=== PATIENT | female | born 1975 | race Caucasian/White ===

== ENCOUNTER → 2019-03-17 | Outpatient (CLI) | payer OTHER ==
[2019-03-17 14:45] LABS: HCT 34.2 % (34.0-46.0); HGB 10.2 gm/dL (11.4-16.0); Hypochromasia Moderate; MCH 25.7 pg (25.0-35.0); MCHC 29.8 g/dL (31.0-37.0); MCV 86.2 fL (80.0-100.0); Mean Platelet Volume 6.4; Platelet Count 429 k/uL (150-450); RBC 3.96 m/uL (3.80-5.40); RDW 15.7 % (11.5-15.5); WBC 11.6 k/uL (3.8-10.6)
== END | disposition home or self-care (01) ==
LOC: LABWHC1 13:58
PROVIDERS: ATTEND Internal Medicine Gastroenterology
DX: K51.90 Ulcerative colitis, unspecified, without complications (principal)
CPT/HCPCS: 36415; 85027

== ENCOUNTER → 2020-03-07 | Outpatient (CLI) | payer OTHER ==
--- NOTE | 2020-03-07 11:15 | FL ---
ESOPHOGRAM. HISTORY: Dysphagia Single contrast esophagus esophagram was performed. Patient ingested thin liquid barium without diffi culty or delay. Esophageal peristalsis and motility appear to be within normal limits. There is no evidence for filling defect, mass or diverticulum. There is a large fixed hiatal hernia noted without obstruction. Subsequently single contrast cervical esophagram was performed which fails demonstrate evidence for a spiration penetration or mass. IMPRESSION: There is a large fixed hiatal hernia noted without obstruction.
== END | disposition home or self-care (01) ==
LOC: RADUSWWP 09:48
PROVIDERS: ATTEND Surgery Plastic and Reconstructive Surgery
DX: K44.9 Diaphragmatic hernia without obstruction or gangrene (principal)
CPT/HCPCS: 74220

== ENCOUNTER → 2020-03-31 | Outpatient (CLI) | payer OTHER ==
[2020-03-31 13:36] LABS: Anisocytosis Slight; HCT 40.2 % (34.0-46.0); HGB 12.5 gm/dL (11.4-16.0); Hypochromasia Slight; MCH 27.8 pg (25.0-35.0); MCV 89.6 fL (80.0-100.0); Mean Platelet Volume 7.1; Platelet Count 311 k/uL (150-450); RBC 4.49 m/uL (3.80-5.40); RDW 18.1 % (11.5-15.5); WBC 8.2 k/uL (3.8-10.6)
[2020-03-31 13:47] LABS: INR 0.9 (<1.2); Partial Thromboplastin Time 26.7 sec (22.0-30.0); Prothrombin Time 9.4 sec (9.0-12.0)
[2020-03-31 14:15] LABS: ALT 21 U/L (4-34); AST 19 U/L (14-36); African American GFR (CKD) >90 (>60 ml/min/1.73 sqM); Alkaline Phosphatase 57 U/L (38-126); Anion Gap 7 mmol/L; Blood Urea Nitrogen 14 mg/dL (7-17); Calcium 9.4 mg/dL (8.4-10.2); Carbon Dioxide 27 mmol/L (22-30); Chloride 104 mmol/L (98-107); Cholesterol 184 mg/dL (<200); Glucose 123 mg/dL (74-99); HDL Cholesterol 40 mg/dL (40-60); LDL Cholesterol,Calculated 90 mg/dL (0-99); Magnesium 1.7 mg/dL (1.6-2.3); Non-African American GFR(CKD) >90 (>60 ml/min/1.73 sqM); Phosphorus 3.3 mg/dL (2.5-4.5); Potassium 4.3 mmol/L (3.5-5.1); Sodium 138 mmol/L (137-145); Total Bilirubin 0.4 mg/dL (0.2-1.3); Total Protein 7.1 g/dL (6.3-8.2); Triglycerides 272 mg/dL (<150)
[2020-03-31 19:02] LABS: Ferritin 140.2 ng/mL (10.0-291.0)
[2020-03-31 19:51] LABS: Folate, Serum >24.0 ng/mL; Iron 61 ug/dL (50-170); Total Iron Binding Capacity 302 ug/dL (228-460)
[2020-04-01 14:07] LABS: Zinc, Serum 70 ug/dL (60-130)
[2020-04-03 02:30] LABS: Selenium 128 mcg/L (63-160)
[2020-04-04 06:37] LABS: Vitamin A 38 ug/dL (38-106)
[2020-04-05 06:52] LABS: Vit B1(Thiamine) 57 ug/L (38-122)
== END | disposition home or self-care (01) ==
LOC: LABPAT 12:08
PROVIDERS: ATTEND Surgery Plastic and Reconstructive Surgery
DX: E21.1 Secondary hyperparathyroidism, not elsewhere classified (principal); E89.1 Postprocedural hypoinsulinemia; D50.9 Iron deficiency anemia, unspecified; K90.89 Other intestinal malabsorption; E55.9 Vitamin D deficiency, unspecified; K74.1 Hepatic sclerosis; N19 Unspecified kidney failure; K50.90 Crohn's disease, unspecified, without complications
CPT/HCPCS: 80053; 80061; 82306; 82525; 82607; 82728; 82746; 83036; 83540; 83550; 83735; 83970; 84100; 84134; 84255; 84425; 84443; 84590; 84630; 85027; 85610; 85730; 93005

== ENCOUNTER → 2021-05-03 | Outpatient (CLI) | payer OTHER ==
[2021-05-03 09:32] LABS: Basophils # (A) 0.1 k/uL (0-0.2); Basophils % (A) 1 %; Eosinophils # (A) 0.6 k/uL (0-0.7); Eosinophils % (A) 6 %; HCT 36.3 % (34.0-46.0); Lymphocytes # (A) 1.5 k/uL (1.0-4.8); Lymphocytes % (A) 16 %; MCH 29.1 pg (25.0-35.0); MCV 88.2 fL (80.0-100.0); Mean Platelet Volume 7.1; Monocytes # (A) 0.9 k/uL (0-1.0); Monocytes % (A) 9 %; Neutrophils # (A) 6.4 k/uL (1.3-7.7); Neutrophils % (A) 66 %; Platelet Count 343 k/uL (150-450); RBC 4.12 m/uL (3.80-5.40); RDW 13.9 % (11.5-15.5); WBC 9.7 k/uL (3.8-10.6)
== END | disposition home or self-care (01) ==
LOC: LABPAT 08:36
PROVIDERS: ATTEND Obstetrics & Gynecology
DX: Z01.812 Encounter for preprocedural laboratory examination (principal)
CPT/HCPCS: 36415; 85025

== ENCOUNTER 2021-05-11 06:17 | Day surgery (SDC) | payer OTHER ==
[2021-05-08 14:39] VITALS: BMI 48.0
--- NOTE | 2021-05-10 17:18 | P.HPOB ---
History of Present Illness H&P Date: 05/10/21 Chief Complaint: menorrhagia Patient is a 45-year-old female with heavy vaginal bleeding. She relates that she is had heavy but vaginal bleeding for number of years and her symptoms have included anemia and fatigue. She's never had treatment for the symptoms and is hoping for symptomatically relief as she is unable to function well due to how heavy her bleeding is. She is scheduled for a D&C with hysteroscopy. Risks/benefits/tarsus procedure were reviewed with the patient in detail and all questions were answered for her prior to proceeding to the operating room. Past Medical History Past Medical History: Blood Disorder, Hypertension Additional Past Medical History / Comment(s): anemia, colitis History of Any Multi-Drug Resistant Organisms: None Reported Past Surgical History: Section, Hernia Repair, Tubal Ligation Additional Past Surgical History / Comment(s): hiatal hernia repair Past Anesthesia/Blood Transfusion Reactions: Postoperative Nausea & Vomiting (PONV) Smoking Status: Never smoker - Past Family History Father Family Medical History: Hypertension Mother Family Medical History: No Reported History Medications and Allergies Home Medications Medication Instructions Recorded Confirmed Type Acebutolol HCl [Sectral] 600 mg PO DAILY 02/28/16 05/08/21 History Iron 64 mg PO BID 04/06/20 05/08/21 History PARoxetine [Paxil] 20 mg PO DAILY 10/28/20 05/08/21 History Budesonide [Entocort EC] 9 mg PO DAILY 05/08/21 05/08/21 History Allergies Allergy/AdvReac Type Severity Reaction Status Date / Time No Known Allergies Allergy Verified 05/08/21 14:25 Exam Osteopathic Statement: *. No significant issues noted on an osteopathic structural exam other than those noted in the History and Physical/Consult. - OBG Physical Exam Breast: both: normal (no masses) Abdomen: bowel sounds normal, no diffuse tenderness, no bruit present, no guarding noted, no hepatomegaly, no splenomegaly, no mass Vulva: both: normal Vagina: normal moisture, no discharge Cervix: no lesion, no discharge Uterus: normal size, normal contour Adnexa: both: normal Anus/Rectum: normal perianal skin, no rectal mass, no hemorrhoids, heme negative
[~2021-05-11 06:17] MED LIST: DEXAMETHASONE SOD PHOSPHATE 4 MG/ML 1 ML VIAL IV ONE; LACTATED RINGERS 1,000 ML IV SCH; ONDANSETRON 4 MG/2 ML VIAL IVP ONE; Pre Op ABX Message 1 EACH MISC MISCELLANE ONE
[2021-05-11] MEDS ORDERED: HYDROmorphone 0.5 MG/0.5 ML SYRINGE IVP PRN (07:00)
[2021-05-11 07:21] LABS: Glucose,Whole Blood 98 mg/dL (75-99)
[2021-05-11] MEDS ORDERED: SCOPOLAMINE 1.5MG/72HR PATCH TRANSDERM ONE (07:21)
[2021-05-11] MEDS ORDERED: MIDAZOLAM 2 MG/2 ML VIAL ONE (07:43)
[2021-05-11] MEDS ORDERED: PROPOFOL 10 MG/ML 20 ML VIAL IV ONE (07:43)
[2021-05-11] MEDS ORDERED: fentaNYL (PF) 50 MCG/ML 2 ML AMP ONE (07:43)
[2021-05-11] MEDS ORDERED: SUCCINYLCHOLINE CHLORIDE VIAL 200 MG/10 ML VIAL IV ONE (07:43)
[2021-05-11] MEDS ORDERED: LIDOCAINE 1% INJ 10MG/ML (20 ML MDV) ONE (07:43)
[2021-05-11 08:20] VITALS: TEMP 96.8
[2021-05-11] MEDS ORDERED: KETOROLAC 15 MG/ML 1 ML VIAL ONE (08:28)
[2021-05-11 09:00] VITALS: RESP 18
--- NOTE | 2021-05-11 09:07 | P.OP ---
Date of Procedure: 05/11/21 Preoperative Diagnosis: Dysfunctional uterine bleeding Postoperative Diagnosis: Same Procedure(s) Performed: D&C with hysteroscopy Anesthesia: TC Surgeon: Roger Moscoso Estimated Blood Loss (ml): 3 Pathology: other (Uterine curettings) Condition: stable Disposition: same day Operative Findings: Pathology pending Description of Procedure: Patient states the operating suite where a general anesthetic was found be adequate. She was prepped and draped in normal sterile fashion and placed in dorsal lithotomy position. Initially a Allis clamp was used grasp the cervix following placement of a weighted speculum. Cervix was then dilated and camera was inserted. No gross pathology was noted therefore camera was removed and sharp curettings were obtained. This tissue was collected, placed on Telfa, and sent to pathology for evaluation. All incidents were then removed. Sponge, lap, needle counts were all correct 2. Patient was then taken to the recovery room in stable and satisfactory condition. Plan - Discharge Summary Discharge Rx Participant: Yes New Discharge Prescriptions: New Ibuprofen [Motrin] 600 mg PO Q6HR PRN #30 tab PRN Reason: Pain No Action Acebutolol HCl [Sectral] 600 mg PO DAILY Iron 64 mg PO BID PARoxetine [Paxil] 20 mg PO DAILY Budesonide [Entocort EC] 9 mg PO DAILY Discharge Medication List Acebutolol HCl [Sectral] 600 mg PO DAILY 02/28/16 [History] Iron 64 mg PO BID 04/06/20 [History] PARoxetine [Paxil] 20 mg PO DAILY 10/28/20 [History] Budesonide [Entocort EC] 9 mg PO DAILY 05/08/21 [History] Ibuprofen [Motrin] 600 mg PO Q6HR PRN #30 tab 05/11/21 [Rx] Follow up Appointment(s)/Referral(s): Roger Moscoso DO [Doctor of Osteopathic Medicine] - 10 Days Patient Instructions/Handouts: *Sur[facility] - Dilation & Curettage Home Instructions, *[facility] - (Anesthesia) Discharge Instructions Outpatient Surgery, *Surgery [facility] - Scopalamine Patch Instructions Activity/Diet/Wound Care/Special Instructions: Heavy lifting, limit stairs and driving, and pelvic rest. If any high temperatures, heavy bleeding, or severe pain call my office
[2021-05-11 09:17] VITALS: BP 123/84; PULSE 73
== END 2021-05-11 09:50 | disposition home or self-care (01) ==
LOC: OR 06:17
PROVIDERS: ATTEND Obstetrics & Gynecology
DX: N92.0 Excessive and frequent menstruation with regular cycle (principal); N93.8 Other specified abnormal uterine and vaginal bleeding; N85.00 Endometrial hyperplasia, unspecified; F41.9 Anxiety disorder, unspecified; Z79.899 Other long term (current) drug therapy; I10 Essential (primary) hypertension; Z98.890 Other specified postprocedural states; Z98.51 Tubal ligation status
CPT/HCPCS: 58558; 81025; 88305; J2250; J0330; J1100; J2405; J2001; J3010; J1885; J2704

== ENCOUNTER 2022-07-24 13:23 | Emergency (ER) | payer OTHER ==
[2022-07-24 14:20] LABS: Basophils # (A) 0.1 k/uL (0-0.2); Basophils % (A) 2 %; Eosinophils # (A) 0.2 k/uL (0-0.7); Eosinophils % (A) 3 %; HCT 27.1 % (34.0-46.0); HGB 8.1 gm/dL (11.4-16.0); Hypochromasia Marked; Lymphocytes # (A) 1.7 k/uL (1.0-4.8); Lymphocytes % (A) 25 %; MCH 22.8 pg (25.0-35.0); Mean Platelet Volume 7.3; Microcytosis Slight; Monocytes # (A) 0.4 k/uL (0-1.0); Monocytes % (A) 7 %; Neutrophils % (A) 60 %; Platelet Count 508 k/uL (150-450); Poikilocytosis Slight; RBC 3.57 m/uL (3.80-5.40); RDW 14.9 % (11.5-15.5); WBC 6.6 k/uL (3.8-10.6)
[2022-07-24 14:32] LABS: ALT 27 U/L (4-34); AST 23 U/L (14-36); African American GFR (CKD) >90 (>60 ml/min/1.73 sqM); Albumin 4.2 g/dL (3.5-5.0); Alkaline Phosphatase 75 U/L (38-126); Anion Gap 7 mmol/L; Blood Urea Nitrogen 15 mg/dL (7-17); Calcium 8.9 mg/dL (8.4-10.2); Carbon Dioxide 22 mmol/L (22-30); Chloride 110 mmol/L (98-107); Glucose 127 mg/dL (74-99); Non-African American GFR(CKD) >90 (>60 ml/min/1.73 sqM); Potassium 4.5 mmol/L (3.5-5.1); Sodium 139 mmol/L (137-145); Total Bilirubin 0.2 mg/dL (0.2-1.3); Total Protein 7.2 g/dL (6.3-8.2)
[2022-07-24 14:40] LABS: INR 0.9 (<1.2); Prothrombin Time 9.6 sec (9.0-12.0)
--- NOTE | 2022-07-24 17:43 | ED ---
Dizziness HPI - General Chief Complaint: Dizziness Stated Complaint: dizziness Time Seen by Provider: 07/24/22 17:32 Source: patient Mode of arrival: ambulatory Limitations: no limitations - History of Present Illness Initial Comments: 's patient is a 47-year-old woman with history of anemia who presents to have evaluation because she suspects her condition has recurred. The patient states that lately when she exerts herself especially going upstairs, she finds that she becomes short of breath. She also has experienced numbness to the bilateral hands and sometimes she feels like she'll pass out. The symptoms have been intermittent but have been occurring more frequently. 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 She states that after that she exerted herself and she was feeling pretty bad so she felt she should be seen here. She states that labs were drawn at the clinic but she does not have a result. Patient has not noted any bloody or dark tarry stools. Last period was heavy but states she had previous D&C and was told that they didn't believe this was responsible for her anemia. MD Complaint: dizziness, lightheadedness, difficulty walking -: hour(s) Timing: sudden onset Description: lightheadedness History of Same: Yes History of Trauma: No Severity: moderate Improves With: rest Worsens With: exertion - Related Data Home Medications Medication Instructions Recorded Confirmed Acebutolol HCl [Sectral] 600 mg PO DAILY 02/28/16 04/16/22 Iron 64 mg PO BID 04/06/20 04/13/22 PARoxetine [Paxil] 20 mg PO DAILY 10/28/20 04/16/22 Mesalamine [Lialda] 5 gm PO DAILY 07/28/21 04/16/22 Pantoprazole [Protonix] 40 mg PO DAILY 11/20/21 04/16/22 Previous Rx's Medication Instructions Recorded oxyCODONE HCL [OxyIR] 5 mg PO Q6H PRN 3 Days #6 tab 04/16/22 Allergies Allergy/AdvReac Type Severity Reaction Status Date / Time No Known Allergies Allergy Verified 04/16/22 06:59 Review of Systems ROS Statement: Those systems with pertinent positive or pertinent negative responses have been documented in the HPI. ROS Other: All systems not noted in ROS Statement are negative. Constitutional: Reports: weakness. Denies: fever, chills Eyes: Denies: vision change Respiratory: Denies: cough, dyspnea Cardiovascular: Denies: chest pain, palpitations, orthopnea, edema, syncope Gastrointestinal: Denies: abdominal pain, vomiting, diarrhea Genitourinary: Denies: dysuria, hematuria, abnormal menses Musculoskeletal: Denies: back pain Skin: Denies: rash Neurological: Reports: paresthesias. Denies: headache, weakness, numbness Hematological/Lymphatic: Denies: easy bleeding Past Medical History Past Medical History: Blood Disorder, GERD/Reflux, Hypertension Additional Past Medical History / Comment(s): iron deficient anemia, ulcerative colitis, gallstones, recent RUQ pain History of Any Multi-Drug Resistant Organisms: None Reported Past Surgical History: Section, Hernia Repair, Tubal Ligation Additional Past Surgical History / Comment(s): hiatal hernia repair, C/S x3, D & C Past Anesthesia/Blood Transfusion Reactions: Postoperative Nausea & Vomiting (PONV) Additional Past Anesthesia/Blood Transfusion Reaction / Comment(s): no problems w/blood transfusion Past Psychological History: Anxiety Smoking Status: Never smoker - Past Family History Father Family Medical History: Hypertension Mother Family Medical History: No Reported History General Exam Limitations: no limitations General appearance: alert, in no apparent distress Course Vital Signs 07/24/22 13:52 Temperature 98 F Pulse Rate 80 Respiratory 16 Rate Blood Pressure 148/81 O2 Sat by Pulse 100 Oximetry EKG Findings - EKG Results: EKG: interpreted by ERMD, sinus rhythm (Rate 74 bpm), normal axis, normal ST/T - Blocks, Welcome, Hypertrophy, ST Abn: QRS axis and voltage: low voltage (<0.5 MV total QRS and <1.0 MV in each precordial lead) Medical Decision Making - Medical Decision Making Patient's 47-year-old woman here with symptoms consistent with symptomatic anemia. Labs do reflect decreased hemoglobin by 3.5 g from March to today's date. Case is discussed with Dr. Alberto from hematology who does recommend t ransfusion based on patient's symptomatic anemia. Discussed with patient who is in agreement with this plan after informed consent.. - Lab Data Result diagrams: 07/24/22 14:13 07/24/22 14:13 Lab Results 07/24/22 07/24/22 07/24/22 Range/Units 14:13 14:13 14:13 WBC 6.6 (3.8-10.6) k/uL RBC 3.57 L (3.80-5.40) m/uL Hgb 8.1 L (11.4-16.0) gm/dL Hct 27.1 L (34.0-46.0) % MCV 76.0 L (80.0-100.0) fL MCH 22.8 L (25.0-35.0) pg MCHC 30.0 L (31.0-37.0) g/dL RDW 14.9 (11.5-15.5) % Plt Count 508 H (150-450) k/uL MPV 7.3 Neutrophils % 60 % Lymphocytes % 25 % Monocytes % 7 % Eosinophils % 3 % Basophils % 2 % Neutrophils # 4.0 (1.3-7.7) k/uL Lymphocytes # 1.7 (1.0-4.8) k/uL Monocytes # 0.4 (0-1.0) k/uL Eosinophils # 0.2 (0-0.7) k/uL Basophils # 0.1 (0-0.2) k/uL Hypochromasia Marked Poikilocytosis Slight Microcytosis Slight PT 9.6 (9.0-12.0) sec INR 0.9 (<1.2) Sodium 139 (137-145) mmol/L Potassium 4.5 (3.5-5.1) mmol/L Chloride 110 H (98-107) mmol/L Carbon Dioxide 22 (22-30) mmol/L Anion Gap 7 mmol/L BUN 15 (7-17) mg/dL Creatinine 0.63 (0.52-1.04) mg/dL Est GFR (CKD-EPI)AfAm >90 (>60 ml/min/1.73 sqM) Est GFR (CKD-EPI)NonAf >90 (>60 ml/min/1.73 sqM) Glucose 127 H (74-99) mg/dL Calcium 8.9 (8.4-10.2) mg/dL Total Bilirubin 0.2 (0.2-1.3) mg/dL AST 23 (14-36) U/L ALT 27 (4-34) U/L Alkaline Phosphatase 75 (38-126) U/L Troponin I (0.000-0.034) ng/mL Total Protein 7.2 (6.3-8.2) g/dL Albumin 4.2 (3.5-5.0) g/dL 07/24/22 Range/Units 14:13 WBC (3.8-10.6) k/uL RBC (3.80-5.40) m/uL Hgb (11.4-16.0) gm/dL Hct (34.0-46.0) % MCV (80.0-100.0) fL MCH (25.0-35.0) pg MCHC (31.0-37.0) g/dL RDW (11.5-15.5) % Plt Count (150-450) k/uL MPV Neutrophils % % Lymphocytes % % Monocytes % % Eosinophils % % Basophils % % Neutrophils # (1.3-7.7) k/uL Lymphocytes # (1.0-4.8) k/uL Monocytes # (0-1.0) k/uL Eosinophils # (0-0.7) k/uL Basophils # (0-0.2) k/uL Hypochromasia Poikilocytosis Microcytosis PT (9.0-12.0) sec INR (<1.2) Sodium (137-145) mmol/L Potassium (3.5-5.1) mmol/L Chloride (98-107) mmol/L Carbon Dioxide (22-30) mmol/L Anion Gap mmol/L BUN (7-17) mg/dL Creatinine (0.52-1.04) mg/dL Est GFR (CKD-EPI)AfAm (>60 ml/min/1.73 sqM) Est GFR (CKD-EPI)NonAf (>60 ml/min/1.73 sqM) Glucose (74-99) mg/dL Calcium (8.4-10.2) mg/dL Total Bilirubin (0.2-1.3) mg/dL AST (14-36) U/L ALT (4-34) U/L Alkaline Phosphatase (38-126) U/L Troponin I <0.012 (0.000-0.034) ng/mL Total Protein (6.3-8.2) g/dL Albumin (3.5-5.0) g/dL Disposition Clinical Impression: Anemia Disposition: HOME SELF-CARE Condition: Fair Instructions (If sedation given, give patient instructions): Anemia (ED) Is patient prescribed a controlled substance at d/c from ED?: No Referrals: Geri Lindsey DO [Primary Care Provider] - 1-2 days
[2022-07-24 20:02] VITALS: RESP 18; TEMP 98.1
[2022-07-24 23:17] VITALS: BP 132/80; PULSE 79
== END 2022-07-24 23:21 | disposition home or self-care (01) ==
LOC: EC 13:23
DX: D64.9 Anemia, unspecified (principal); K21.9 Gastro-esophageal reflux disease without esophagitis; F41.9 Anxiety disorder, unspecified; Z79.899 Other long term (current) drug therapy
CPT/HCPCS: 36415; 93005; 86900; 86901; 80053; 84484; 85025; 85610; 86850; 86920; 99284; 36430; P9016

== ENCOUNTER → 2022-11-07 | Outpatient (CLI) | payer OTHER ==
[2022-11-07 15:27] LABS: Basophils # (A) 0.09 X 10*3/uL (0.00-0.10); Basophils % (A) 0.9 %; Eosinophils # (A) 0.32 X 10*3/uL (0.04-0.35); Eosinophils % (A) 3.2 %; HCT 35.3 % (37.2-46.3); HGB 10.7 g/dL (12.0-15.0); Immature Grans, Automated 0.5 %; Lymphocytes # (A) 1.87 X 10*3/uL (0.90-5.00); Lymphocytes % (A) 18.7 %; MCH 27.6 pg (27.0-32.0); MCHC 30.3 g/dL (32.0-37.0); MCV 91.2 fL (80.0-97.0); Monocytes # (A) 0.91 X 10*3/uL (0.20-1.00); Monocytes % (A) 9.1 %; NRBC Per 100 WBC 0 /100 WBCS (0.0-0.0); Neutrophils # (A) 6.74 X 10*3/uL (1.80-7.70); Neutrophils % (A) 67.6 %; Platelet Count 433 X 10*3/uL (140-440); RBC 3.87 X 10*6/uL (4.10-5.20); RDW 18.6 % (11.5-14.5); WBC 9.98 X 10*3/uL (4.50-10.00)
== END | disposition home or self-care (01) ==
LOC: LABPAT 08:16
PROVIDERS: ATTEND Obstetrics & Gynecology Obstetrics
DX: Z01.818 Encounter for other preprocedural examination (principal); I10 Essential (primary) hypertension; N92.0 Excessive and frequent menstruation with regular cycle; D64.9 Anemia, unspecified; R00.1 Bradycardia, unspecified
CPT/HCPCS: 85025; 93005

== ENCOUNTER → 2022-11-07 | Outpatient (CLI) | payer OTHER ==
--- NOTE | 2022-11-08 07:54 | MM ---
Reason for Exam: Screening (asymptomatic). Last mammogram was performed 11 year(s) and 7 month(s) ago. Patient History: Menarche at age 16. First Full-Term at age 23. Maternal aunt had breast cancer at or over age 50. Maternal aunt had breast cancer under age 50. Maternal grandmother had breast cancer at or over age 50. Last menstrual period: 11/06/2022 Risk Values: Lisandra 5 year model risk: 0.7%. NCI Lifetime model risk: 7.9%. Prior Study Comparison: 04/09/2011 Bilateral Screening Mammogram, [facility]. Tissue Density: There are scattered fibroglandular densities. Findings: Analyzed By CAD. There is no suspicious group of microcalcifications or new suspicious mass in either breast. Overall Assessment: Negative, BI-RAD 1 Management: Screening Mammogram of both breasts in 1 year. A clinical breast exam by your physician is recommended on an annual basis and results should be correlated with mammographic findings. [facility] will attempt to contact patient to return for supplemental views and ultrasound if indicated. Electronically signed and approved by: Julio Rosen DO
== END | disposition home or self-care (01) ==
LOC: RADMAMWWP 08:18
PROVIDERS: ATTEND Obstetrics & Gynecology Obstetrics
DX: Z12.31 Encounter for screening mammogram for malignant neoplasm of breast (principal); Z80.3 Family history of malignant neoplasm of breast
CPT/HCPCS: 77063; 77067

== ENCOUNTER 2022-11-12 09:01 | Day surgery (SDC) | payer OTHER ==
[2022-11-09 08:37] VITALS: BMI 50.6
[~2022-11-12 09:01] MED LIST changes: -DEXAMETHASONE SOD PHOSPHATE 4 MG/ML 1 ML VIAL IV ONE; -LACTATED RINGERS 1,000 ML IV SCH; -ONDANSETRON 4 MG/2 ML VIAL IVP ONE
[2022-11-12] MEDS ORDERED: METOCLOPRAMIDE 5 MG/ML 2 ML VIAL IVP PRN (09:10)
[2022-11-12] MEDS ORDERED: LIDOCAINE 1% (10MG/ML) FOR IV START INTRADERMA PRN (09:10)
[2022-11-12] MEDS ORDERED: DEXAMETHASONE SOD PHOSPHATE 4 MG/ML 1 ML VIAL IV ONE (09:10)
[2022-11-12] MEDS ORDERED: HYDROmorphone 0.5 MG/0.5 ML SYRINGE IVP PRN (09:10)
[2022-11-12] MEDS ORDERED: ONDANSETRON 4 MG/2 ML VIAL IVP ONE (09:10)
[2022-11-12] MEDS: LACTATED RINGERS 1,000 ML IV SCH ×2 (09:35→10:50)
[2022-11-12] MEDS ORDERED: SCOPOLAMINE 1 MG/72 HR PATCH TRANSDERM ONE (09:39)
[2022-11-12] MEDS ORDERED: PROPOFOL 10 MG/ML 20 ML VIAL IV ONE (10:45)
[2022-11-12] MEDS ORDERED: LIDOCAINE 2% INJ 20 MG/ML (2 ML VIAL) ONE (10:45)
[2022-11-12] MEDS ORDERED: SUCCINYLCHOLINE CHLORIDE 200 MG/10 ML VIAL IV ONE (10:45)
[2022-11-12] MEDS ORDERED: KETOROLAC 15 MG/ML 1 ML VIAL ONE (10:45)
[2022-11-12] MEDS ORDERED: fentaNYL (PF) 50 MCG/ML 2 ML AMP ONE (10:45)
--- NOTE | 2022-11-12 11:19 | P.OP ---
Date of Procedure: 11/12/22 Preoperative Diagnosis: Menorrhagia Postoperative Diagnosis: Same Procedure(s) Performed: Hysteroscopy, dilation and curettage, endometrial ablation Anesthesia: GETA Surgeon: Ann Marie Swartz Estimated Blood Loss (ml): 5 IV fluids (ml): 200 Urine output (ml): 100 Pathology: other (Endometrial curettings) Condition: stable Disposition: PACU Indications for Procedure: Heavy menstrual bleeding Operative Findings: Enlarged uterus at 10 cm normal-appearing cavity Description of Procedure: Patient was taken back to the operating suite where general anesthesia was obtained without difficulty by the anesthesia department. Patient was prepped and draped in the normal sterile fashion in the dorsal lithotomy position. A weighted speculum was placed in the posterior vaginal vault the anterior lip of the cervix is visualized and grasped with a single-tooth tenaculum. The vaginal mucosa was quite friable with the cervix having a strawberry appearance. The endocervical canal was then serially dilated. Hysteroscope was placed through the cervix and toward the endometrial cavity. An intact cavity was appreciated with proliferative endometrium. The hysteroscope was removed and a sharp curettage was performed. The specimen was then sent to pathology for analysis. The NovaSure device was opened and set to the appropriate dimensions for the patient's cavity with a length of 6, width of 3.7, power of 122. After the cavity assessment was passed the cycle was allowed to complete for a total of 53 seconds. After the cycle was complete the NovaSure was removed without difficulty. The single-tooth tenaculum taken off of the anterior lip of the cervix and hemostasis was appreciated. All counts were noted to be correct 2 at the end of the procedure. Patient tolerated procedure well and was taken the recovery room awake in stable condition.
[2022-11-12 11:24] VITALS: TEMP 96.8
[2022-11-12 12:32] VITALS: RESP 12
[2022-11-12 12:41] VITALS: BP 117/78; PULSE 66
== END 2022-11-12 13:08 | disposition home or self-care (01) ==
LOC: OR 09:01
PROVIDERS: ATTEND Obstetrics & Gynecology Obstetrics
DX: N92.0 Excessive and frequent menstruation with regular cycle (principal); I10 Essential (primary) hypertension; D64.9 Anemia, unspecified; K21.9 Gastro-esophageal reflux disease without esophagitis; Z87.19 Personal history of other diseases of the digestive system; Z79.51 Long term (current) use of inhaled steroids; Z79.899 Other long term (current) drug therapy
CPT/HCPCS: 81025; 88305; 58563; J0330; J1100; J2405; J3010; J1885; J2704; J2001

== ENCOUNTER 2023-12-03 09:40 | Day surgery (SDC) | payer OTHER ==
[2023-11-27 16:27] VITALS: BMI 50.6
[2023-12-03 11:08] VITALS: TEMP 97.2
[2023-12-03] MEDS: LACTATED RINGERS 1,000 ML IV SCH (11:09)
[2023-12-03] MEDS ORDERED: PROPOFOL 10 MG/ML 20 ML VIAL IV ONE (11:27)
--- NOTE | 2023-12-03 11:40 | P.PCN ---
Date of Procedure: 12/03/23 Procedure(s) Performed: BRIEF HISTORY: Patient is a [48-year-old pleasant white female scheduled for an elective colonoscopy as a part of long-standing history of ulcerative colitis diagnosed in 2012. Patient is in clinical remission. Recently she was diagnosed with iron deficiency anemia. She denies any diarrhea or rectal bleeding. PROCEDURE PERFORMED: Colonoscopy with random biopsies. PREOPERATIVE DIAGNOSIS: Long-standing history of ulcerative colitis and iron deficiency anemia IV sedation per Anesthesia. PROCEDURE: After informed consent was obtained, the patient, was brought into the endoscopy unit. IV sedation was administered by Anesthesia under continuous monitoring. Digital rectal examination was normal. Initially the Olympus CF-160 flexible video colonoscope was then inserted in the rectum, gradually advanced into the cecum without any difficulty. Careful examination was performed as the scope was gradually being withdrawn. Ileocecal valve and the appendiceal orifice were visualized and appeared normal. Prep was excellent. Mucosa of the cecum, ascending colon, transverse colon, descending colon, sigmoid colon, and rectum appeared normal. Random biopsies were done from the cecum to rectum at every 10 cm into well to rule out dysplasia.Retroflexion was performed in the rectum and no lesions were seen. The patient tolerated the procedure well. IMPRESSION: Normal-appearing colon from rectum to cecum no evidence of colorectal neoplasia. RECOMMENDATIONS: Findings of this examination were discussed with the patient as well as a family. She was advised tofollow with the biopsy results. There is no evidence of dysplasia she can have a repeat colonoscopy in 3 years.
[2023-12-03 12:29] VITALS: BP 122/72; PULSE 81; RESP 18
== END 2023-12-03 12:27 | disposition home or self-care (01) ==
LOC: ORWHC2ENDO 09:40
PROVIDERS: ATTEND Internal Medicine Gastroenterology
DX: K51.90 Ulcerative colitis, unspecified, without complications (principal); D50.9 Iron deficiency anemia, unspecified; Z79.899 Other long term (current) drug therapy
CPT/HCPCS: 81025; 88305; 45380; J2704; 45378

== ENCOUNTER → 2024-03-26 | Day surgery (SDC) | payer OTHER ==
[2024-03-25 12:25] VITALS: BMI 49.8
[2024-03-26 07:11] VITALS: BP 137/90; PULSE 92; RESP 16; TEMP 96.8
== END ==
LOC: ORWHC2ENDO 06:30
PROVIDERS: ATTEND Internal Medicine Gastroenterology
DX: D50.9 Iron deficiency anemia, unspecified
CPT/HCPCS: 91110

== ENCOUNTER 2024-07-07 08:53 | Emergency (ER) | payer OTHER ==
[2024-07-07 08:56] VITALS: PULSE 82; TEMP 97.4
--- NOTE | 2024-07-07 09:13 | ED ---
Abdominal Pain HPI - General Chief Complaint: Abdominal Pain Stated Complaint: lower L side pain Time Seen by Provider: 07/07/24 09:10 Source: patient, family (), RN notes reviewed Mode of arrival: ambulatory Limitations: no limitations - History of Present Illness Initial Comments: 49-year-old female presenting to the ER with a chief complaint of abdominal pain. Patient reports this morning she woke up with a dull achy left lower quadrant abdominal pain with radiation to her lower back. She states she also feels very nauseous and has had dry heaving. Denies any vomiting. She does report a history of ulcerative colitis. She tried taking Gas-X without relief of symptoms. Patient states yesterday she was having normal bowel movements and denies any diarrhea or constipation. She does report a decreased appetite. , at bedside, states she appears pale. Patient does report a history of anemia and follows up with Dr. Marshall, she is scheduled for infusions. Denies any fever, chills, nightsweats, chest pain, shortness of breath, urinary complaints, or peripheral edema. - Related Data Home Medications Medication Instructions Recorded Confirmed Mesalamine [Lialda] 4.8 gm PO DAILY 07/28/21 07/07/24 PARoxetine [Paxil] 10 mg PO DAILY 11/09/22 07/07/24 Metoprolol Succinate (ER) [Toprol 50 mg PO DAILY 11/27/23 07/07/24 Xl] buPROPion XL [Wellbutrin XL] 300 mg PO DAILY 11/27/23 07/07/24 Pantoprazole [Protonix] 40 mg PO DAILY 07/07/24 07/07/24 Previous Rx's Medication Instructions Recorded Ondansetron Odt [Zofran Odt] 4 mg PO Q8HR PRN #10 tab 07/07/24 Tamsulosin [Flomax] 0.4 mg PO DAILY #7 cap 07/07/24 Allergies Allergy/AdvReac Type Severity Reaction Status Date / Time No Known Allergies Allergy Verified 07/07/24 10:09 Review of Systems ROS Statement: Those systems with pertinent positive or pertinent negative responses have been documented in the HPI. ROS Other: All systems not noted in ROS Statement are negative. Past Medical History Past Medical History: Blood Disorder, GERD/Reflux, Hypertension Additional Past Medical History / Comment(s): Iron deficieny anemia, ulcerative colitis, gallstones. HX BLOOD TRANSFUSION FOR LOW HGB. History of Any Multi-Drug Resistant Organisms: None Reported Past Surgical History: Section, Cholecystectomy, Hernia Repair, Tubal Ligation, Uterine Ablation Additional Past Surgical History / Comment(s): Hiatal hernia repair, section X3, D&C. Past Anesthesia/Blood Transfusion Reactions: Motion Sickness, Postoperative Nausea & Vomiting (PONV) Additional Past Anesthesia/Blood Transfusion Reaction / Comment(s): No problems w/blood transfusion. Past Psychological History: Anxiety Smoking Status: Never smoker - Past Family History Father Family Medical History: Hypertension Mother Family Medical History: No Reported History General Exam Limitations: no limitations General appearance: alert, in no apparent distress Respiratory exam: Present: normal lung sounds bilaterally. Absent: respiratory distress, wheezes, rales, rhonchi, stridor Cardiovascular Exam: Present: regular rate, normal rhythm, normal heart sounds. Absent: systolic murmur, diastolic murmur, rubs, gallop, clicks GI/Abdominal exam: Present: soft, normal bowel sounds. Absent: distended, tenderness, guarding, rebound, rigid Back exam: Present: normal inspection Neurological exam: Present: alert, oriented X3, CN II-XII intact Skin exam: Present: warm, dry, intact, pallor Course Vital Signs 07/07/24 07/07/24 08:54 11:48 Temperature 97.4 F L Pulse Rate 82 Respiratory 20 16 Rate Blood Pressure 143/67 164/92 O2 Sat by Pulse 99 Oximetry - Reevaluation(s) Reevaluation #1: 07/07/24 10:39 Patient reevaluated. No signs of acute distress. Patient reporting great improvement of pain. Patient updated on laboratory results. Medical Decision Making - Medical Decision Making Was pt. sent in by a medical professional or institution (, PA, HOME HEALTH CARE RESPIRATORY THERAPIST, urgent care, hospital, or retirement...) When possible be specific @ -No Did you speak to anyone other than the patient for history (EMS, parent, family, police, friend...)? What history was obtained from this source @ -, at bedside, aiding in HPI. Did you review nursing and triage notes (agree or disagree)? Why? @ -I reviewed and agree with nursing and triage notes Were old charts reviewed (outside hosp., previous admission, EMS record, old EKG, old radiological studies, urgent care reports/EKG's, retirement records)? Report findings @ -No old charts were reviewed Differential Diagnosis (chest pain, altered mental status, abdominal pain women, abdominal pain men, vaginal bleeding, weakness, fever, dyspnea, syncope, headache, dizziness, GI bleed, back pain, seizure, CVA, palpatations, mental health, musculoskeletal)? @ -Differential Abdominal Pain Women: Appendicitis, Cholecystitis, diverticulosis, ischemic bowel, pancreatitis, hepatitis, UTI, gastroenteritis, AAA, incarcerated hernia, bowel obstruction, constipation, inflammatory bowel, hepatitis, peptic ulcer disease, splenic infarction, perforated viscus, vulvitis, ovarian torsion, PID, kidney stone, placenta abruption, this is not meant to be an all-inclusive list EKG interpreted by me (3pts min.). @ -None done X-rays interpreted by me (1pt min.). @ -None done CT interpreted by me (1pt min.). @ -CT abdomen pelvis showing mild left-sided hydronephrosis with obstructing 4 mm calculus at the UPJ. Additional nonobstructing bilateral renal calculi. Hiatal hernia. U/S interpreted by me (1pt. min.). @ -None done What testing was considered but not performed or refused? (CT, X-rays, U/S, labs)? Why? @ -None What meds were considered but not given or refused? Why? @ -None Did you discuss the management of the patient with other professionals (professionals i.e. , PA, HOME HEALTH CARE RESPIRATORY THERAPIST, lab, RT, psych nurse, renal social worker, premium card cancellation clerk, teacher, hospital chief financial officer, case management associate)? Give summary @ -No Was smoking cessation discussed for >3mins.? @ -No Was critical care preformed (if so, how long)? @ -No Were there social determinants of health that impacted care today? How? (Homelessness, low income, unemployed, alcoholism, drug addiction, transportation, low edu. Level, literacy, decrease access to med. care, [facility], rehab)? @ -No Was there de-escalation of care discussed even if they declined (Discuss DNR or withdrawal of care, Hospice)? DNR status @ -No What co-morbidities impacted this encounter? (DM, HTN, Smoking, COPD, CAD, Cancer, CVA, ARF, Chemo, Hep., AIDS, mental health diagnosis, sleep apnea, morbid obesity)? @ -Obese, ulcerative colitis Was patient admitted / discharged? Hospital course, mention meds given and route, prescriptions, significant lab abnormalities, going to OR and other pertinent info. @ -Discharge. 49-year-old female presenting to the ER with a chief complaint of left lower quadrant abdominal pain. History and physical exam completed. Vitals within normal limits. Patient appears well nourished and developed. Patient in no signs of acute distress and nontoxic-appearing. Patient does appear mildly pale on exam. Exam remarkable for no abdominal tenderness with normal bowel sounds. No rebound or guarding. Laboratory studies and CT will be obtained, patient is agreeable. Laboratory studies showing a microcytic hypochromic anemia with a hemoglobin of 9.5 which appears to be chronic in na ture. CMP unimpressive. Urine analysis is hemorrhagic with large blood, large leukocyte esterases and 139 RBCs. As sample is contaminated with 15 epithelial cells urine will be sent for culture and antibiotics will be held until culture results. CT abdomen pelvis performed showing mild left hydronephrosis with an obstructing 4 mm calculus at the UPJ. Patient received symptomatic control in the ER with IV fluids, Toradol and Zofran with great improvement. Upon reevaluation, patient resting comfortably in exam room no signs of acute distress. Patient is stable for discharge at this time. Flomax and Zofran prescribed. Patient discharged with a Tylenol 3 starter pack. I instructed patient to follow-up closely with PCP and urology, referral given. Strict return parameters discussed. Patient discharged in stable condition. Patient verbally expressed understanding and agreement with care plan. Case discussed with ED attending, Dr. Wooten. Undiagnosed new problem with uncertain prognosis? @ -No Drug Therapy requiring intensive monitoring for toxicity (Heparin, Nitro, Insulin, Cardizem)? @ -No Were any procedures done? @ -No Diagnosis/symptom? @ -Nephrolithiasis Acute, or Chronic, or Acute on Chronic? @ -Acute Uncomplicated (without systemic symptoms) or Complicated (systemic symptoms)? @ -Uncomplicated Side effects of treatment? @ -No Exacerbation, Progression, or Severe Exacerbation? @ -No Poses a threat to life or bodily function? How? (Chest pain, USA, SC, pneumonia, PE, COPD, DKA, ARF, appy, cholecystitis, CVA, Diverticulitis, Homicidal, Suicidal, threat to staff... and all critical care pts) @ -No - Lab Data Result diagrams: 07/07/24 09:07/07/24 09:28 Lab Results 07/07/24 07/07/24 07/07/24 Range/Units 09:28 09: 09:28 WBC 9.0 (3.8-10.6) k/uL RBC 4.08 (3.80-5.40) m/uL Hgb 9.5 L (11.4-16.0) gm/dL Hct 32.1 L (34.0-46.0) % MCV 78.7 L (80.0-100.0) fL MCH 23.2 L (25.0-35.0) pg MCHC 29.5 L (31.0-37.0) g/dL RDW 17.2 H (11.5-15.5) % Plt Count 477 H (150-450) k/uL MPV 6.5 Neutrophils % 77 % Lymphocytes % 11 % Monocytes % 5 % Eosinophils % 4 % Basophils % 1 % Neutrophils # 6.9 (1.3-7.7) k/uL Lymphocytes # 1.0 (1.0-4.8) k/uL Monocytes # 0.5 (0-1.0) k/uL Eosinophils # 0.3 (0-0.7) k/uL Basophils # 0.1 (0-0.2) k/uL Hypochromasia Marked Anisocytosis Slight Microcytosis Slight Sodium (137-145) mmol/L Potassium (3.5-5.1) mmol/L Chloride (98-107) mmol/L Carbon Dioxide (22-30) mmol/L Anion Gap mmol/L BUN (7-17) mg/dL Creatinine (0.52-1.04) mg/dL Est GFR (CKD-EPI)AfAm (>60 ml/min/1.73 sqM) Est GFR (CKD-EPI)NonAf (>60 ml/min/1.73 sqM) Glucose (74-99) mg/dL Plasma Lactic Acid Ponce (0.7-2.0) mmol/L Calcium (8.4-10.2) mg/dL Total Bilirubin (0.2-1.3) mg/dL AST (14-36) U/L ALT (4-34) U/L Alkaline Phosphatase (38-126) U/L Total Protein (6.3-8.2) g/dL Albumin (3.5-5.0) g/dL Amylase (30-110) U/L Lipase (23-300) U/L Urine Color Colorless Urine Appearance Cloudy H (Clear) Urine pH 5.5 (5.0-8.0) Ur Specific [place] >1.050 H (1.001-1.035) Urine Protein Trace H (Negative) Urine Glucose (UA) Negative (Negative) Urine Ketones Negative (Negative) Urine Blood Large H (Negative) Urine Nitrite Negative (Negative) Urine Bilirubin Negative (Negative) Urine Urobilinogen <2.0 (<2.0) mg/dL Ur Leukocyte Esterase Large H (Negative) Urine RBC 139 H (0-5) /hpf Urine WBC 37 H (0-5) /hpf Ur Squamous Epith Cells 15 H (0-4) /hpf Urine Mucus Rare H (None) /hpf Urine HCG, Qual Not Detected (Not Detectd) 07/07/24 07/07/24 Range/Units 09:28 09:28 WBC (3.8-10.6) k/uL RBC (3.80-5.40) m/uL Hgb (11.4-16.0) gm/dL Hct (34.0-46.0) % MCV (80.0-100.0) fL MCH (25.0-35.0) pg MCHC (31.0-37.0) g/dL RDW (11.5-15.5) % Plt Count (150-450) k/uL MPV Neutrophils % % Lymphocytes % % Monocytes % % Eosinophils % % Basophils % % Neutrophils # (1.3-7.7) k/uL Lymphocytes # (1.0-4.8) k/uL Monocytes # (0-1.0) k/uL Eosinophils # (0-0.7) k/uL Basophils # (0-0.2) k/uL Hypochromasia Anisocytosis Microcytosis Sodium 140 (137-145) mmol/L Potassium 4.2 (3.5-5.1) mmol/L Chloride 110 H (98-107) mmol/L Carbon Dioxide 23 (22-30) mmol/L Anion Gap 7 mmol/L BUN 17 (7-17) mg/dL Creatinine 0.85 (0.52-1.04) mg/dL Est GFR (CKD-EPI)AfAm >90 (>60 ml/min/1.73 sqM) Est GFR (CKD-EPI)NonAf 82 (>60 ml/min/1.73 sqM) Glucose 114 H (74-99) mg/dL Plasma Lactic Acid Ponce 1.7 (0.7-2.0) mmol/L Calcium 9.0 (8.4-10.2) mg/dL Total Bilirubin 0.3 (0.2-1.3) mg/dL AST 19 (14-36) U/L ALT 20 (4-34) U/L Alkaline Phosphatase 54 (38-126) U/L Total Protein 7.4 (6.3-8.2) g/dL Albumin 4.3 (3.5-5.0) g/dL Amylase 49 (30-110) U/L Lipase 130 (23-300) U/L Urine Color Urine Appearance (Clear) Urine pH (5.0-8.0) Ur Specific [place] (1.001-1.035) Urine Protein (Negative) Urine Glucose (UA) (Negative) Urine Ketones (Negative) Urine Blood (Negative) Urine Nitrite (Negative) Urine Bilirubin (Negative) Urine Urobilinogen (<2.0) mg/dL Ur Leukocyte Esterase (Negative) Urine RBC (0-5) /hpf Urine WBC (0-5) /hpf Ur Squamous Epith Cells (0-4) /hpf Urine Mucus (None) /hpf Urine HCG, Qual (Not Detectd) - Radiology Data Radiology results: report reviewed, image reviewed Disposition Clinical Impression: Nephrolithiasis Disposition: HOME SELF-CARE Condition: Stable Instructions (If sedation given, give patient instructions): Kidney Stones (ED), How to Strain Your Urine (ED) Additional Instructions: You may take [id number] ibuprofen and Tylenol for pain control. Use Tylenol threes for extreme pain. Take Flomax as prescribed. I strongly recomm end follow-up with urology and PCP. Return to the ER for any new or worsening concerns. Prescriptions: Tamsulosin [Flomax] 0.4 mg PO DAILY #7 cap Ondansetron Odt [Zofran Odt] 4 mg PO Q8HR PRN #10 tab PRN Reason: Nausea Is patient prescribed a controlled substance at d/c from ED?: No Referrals: Geri Lindsey DO [Primary Care Provider] - 1-2 days Wilbur Martins MD [STAFF PHYSICIAN] - 1-2 days Time of Disposition: 11:34
[2024-07-07] MEDS: SODIUM CHLORIDE 0.9% 1,000 ML IV STA (09:29)
[2024-07-07] MEDS: ONDANSETRON 4 MG/2 ML VIAL IVP STA (09:29)
[2024-07-07] MEDS: KETOROLAC 15 MG/ML 1 ML VIAL IVP STA (09:30)
[2024-07-07 09:46] LABS: Anisocytosis Slight; Basophils # (A) 0.1 k/uL (0-0.2); Basophils % (A) 1 %; Eosinophils # (A) 0.3 k/uL (0-0.7); Eosinophils % (A) 4 %; HCT 32.1 % (34.0-46.0); HGB 9.5 gm/dL (11.4-16.0); Hypochromasia Marked; Lymphocytes % (A) 11 %; MCH 23.2 pg (25.0-35.0); MCHC 29.5 g/dL (31.0-37.0); MCV 78.7 fL (80.0-100.0); Mean Platelet Volume 6.5; Microcytosis Slight; Monocytes # (A) 0.5 k/uL (0-1.0); Monocytes % (A) 5 %; Neutrophils # (A) 6.9 k/uL (1.3-7.7); Neutrophils % (A) 77 %; Platelet Count 477 k/uL (150-450); RBC 4.08 m/uL (3.80-5.40); RDW 17.2 % (11.5-15.5)
[2024-07-07 10:04] LABS: ALT 20 U/L (4-34); AST 19 U/L (14-36); African American GFR (CKD) >90 (>60 ml/min/1.73 sqM); Albumin 4.3 g/dL (3.5-5.0); Alkaline Phosphatase 54 U/L (38-126); Amylase 49 U/L (30-110); Anion Gap 7 mmol/L; Blood Urea Nitrogen 17 mg/dL (7-17); Carbon Dioxide 23 mmol/L (22-30); Chloride 110 mmol/L (98-107); Glucose 114 mg/dL (74-99); Lipase 130 U/L (23-300); Non-African American GFR(CKD) 82 (>60 ml/min/1.73 sqM); Potassium 4.2 mmol/L (3.5-5.1); Sodium 140 mmol/L (137-145); Total Bilirubin 0.3 mg/dL (0.2-1.3); Total Protein 7.4 g/dL (6.3-8.2)
--- NOTE | 2024-07-07 10:16 | CT ---
EXAMINATION TYPE: CT abdomen pelvis w con CT DLP: 2502.5 mGycm, Automated exposure control for dose reduction was used. DATE OF EXAM: 07/07/2024 10:06 AM COMPARISON: None CLINICAL INDICATION:Female, 49 years old with history of LLQ abd pain; LLQ pain, vomiting TECHNIQUE: Standard CT of the abdomen and pelvis following the administration of 100 cc of Isovue 3 00 IV contrast material. Coronal and sagittal reformats were performed. FINDINGS: LOWER CHEST: Mild left lower lobe subsegmental atelectasis. ABDOMEN LIVER: Unremarkable GALLBLADDER AND BILE DUCTS: The gallbladder is surgically absent. No biliary duct dilatation. PANCREAS: Unremarkable. SPLEEN: Unremarkable. ADRENAL GLANDS: Unremarkable. KIDNEYS AND URETERS: Mild left hydronephrosis with an obstructive 4 mm calculus of the ureteropelvic junction. Additional bilateral punctate nonobstructive renal calculi. Mild left perinephric fat stran ding. No right hydronephrosis. Only contrast is demonstrated within the right collecting system on th e delayed phase. PELVIS BLADDER: Incompletely distended but grossly unremarkable. REPRODUCTIVE: Unremarkable anteverted uterus. Left sided tubal ligation clip. ABDOMEN & PELVIS STOMACH AND BOWEL: Large hiatal hernia containing two thirds stomach in the intrathoracic region.No f ocal wall thickening or surrounding inflammatory changes. The appendix is within normal limits. No ev idence of bowel obstruction. PERITONEUM: No evidence of pneumoperitoneum or free fluid. VASCULATURE: No evidence of aortic aneurysm. MUSCULOSKELETAL: No acute osseous abnormalities. Prominent anterior osteophyte at L2-L3. LYMPH NODES: No evidence for lymphadenopathy. SOFT TISSUE/ABDOMINAL WALL: Tiny fat filled umbilical hernia. IMPRESSION: 1. Mild left hydronephrosis with an obstructing 4 mm calculus at the ureteropelvic junction. 2. Additional nonobstructing bilateral punctate renal calculi. 3. Large hiatal hernia with at least two thirds of the stomach in the intrathoracic region. [facility], , 07/07/2024 10:13 AM
[2024-07-07 11:00] LABS: Appearance,Urine Cloudy (Clear); Bilirubin,Urine Negative (Negative); Blood,Urine Large (Negative); Color,Urine Colorless; Glucose,Urine (UA) Negative (Negative); Ketones,Urine Negative (Negative); Leukocyte Esterase,Urine Large (Negative); Mucus,Urine Rare /hpf; Nitrite,Urine Negative (Negative); PH, Urine 5.5 (5.0-8.0); Protein,Urine Trace (Negative); RBC,Urine 139 /hpf (0-5); Squamous Epithelial Cell,Urine 15 /hpf (0-4); Urobilinogen,Urine <2.0 mg/dL (<2.0); WBC,Urine 37 /hpf (0-5)
[2024-07-07 11:14] LABS: Specific Gravity,Urine >1.050 (1.001-1.035)
[2024-07-07] MEDS: ACET/COD 300 MG/30 MG STARTER PACK 6 TAB BTL PO STA (11:46)
[2024-07-07 11:51] VITALS: BP 164/92; RESP 16
== END 2024-07-07 11:51 | disposition home or self-care (01) ==
LOC: EC 08:53
DX: N13.2 Hydronephrosis with renal and ureteral calculous obstruction (principal); K51.90 Ulcerative colitis, unspecified, without complications; K44.9 Diaphragmatic hernia without obstruction or gangrene; E66.9 Obesity, unspecified; Z68.43 Body mass index [BMI] 50.0-59.9, adult
CPT/HCPCS: 99284; 96374; 96375; 96361; 36415; 80053; 82150; 83605; 83690; 85025; 81001; 81025; 74177; J2405; J1885; Q9967

== ENCOUNTER → 2024-11-10 | Outpatient (CLI) | payer OTHER ==
--- NOTE | 2024-11-10 11:38 | FL ---
EXAMINATION TYPE: FL UGI air w small bowel DATE OF EXAM: 11/10/2024 COMPARISON: CT abdomen and pelvis July 07, 2024. CLINICAL INDICATION: Female, 49 years old with history of D64.9 ANEMIA; PHH, abdominal pain with naus ea and vomiting. History of hiatal hernia repair 2013. History of esophagram 4-5 years ago TECHNIQUE: A double contrast FL UGI air w small bowel study is performed with small bowel follow thr ough. A total of 1.02 minutes of fluoroscopic time was utilized during procedure and 45 images obtai gonzalo. Total dose area product (DAP) in uGy*m?, mGy*cm? (or similar): n/p. FINDINGS: [employer] image of the abdomen shows persistent large fixed hiatal hernia. Multiple cholecyste ctomy clips are redemonstrated. Tubal ligation clips in the pelvis are again seen The esophagus shows satisfactory motility and emptying into the stomach. Redemonstration of large fix ed hiatal hernia. No esophageal stricture noted. Large hiatal hernia shows moderate to severe diffuse gastritis. The stomach shows adequate distensibility and peristalsis. No evidence of any focal intraluminal mas s or ulcer disease. No significant esophageal reflux was seen during real time performance of this s tudy. The duodenal bulb and sweep are unremarkable. The small bowel study shows normal transit to the colon in less than 90 minutes. There is normal muc osal fold pattern throughout the small bowel. There is no evidence of any stricture or filling defec t noted. The terminal ileum is spotted and appears unremarkable. Incidental note is made of normal a ppearing contrast-filled appendix IMPRESSION: Persistent large fixed hiatal hernia with moderate to severe gastritis in the hernia not ed. Unremarkable small bowel series. [facility], , 11/10/2024 11:36 AM
== END | disposition home or self-care (01) ==
LOC: RADFLMAIN 08:11
PROVIDERS: ATTEND Family Medicine
DX: D64.9 Anemia, unspecified (principal); K44.9 Diaphragmatic hernia without obstruction or gangrene; K29.70 Gastritis, unspecified, without bleeding
CPT/HCPCS: 74240; 74248